=== PATIENT | female | born 1955 | race Caucasian/White ===

== ENCOUNTER 2020-12-16 22:54 | Emergency (ER) | payer MEDICARE, SELFPAY ==
[2020-12-16 23:01] VITALS: BP 161/88; PULSE 94
[2020-12-16 23:12] VITALS: BP 152/81; PULSE 89; RESP 16; TEMP 37.4; O2SAT 97; BMI 34.2
--- NOTE | 2020-12-16 23:20 | ED.GENADULT ---
HPI - General Adult General Chief complaint: General Medical Stated complaint: low blood sugar Time Seen by Provider: 12/16/20 23:20 Source: patient Mode of arrival: EMS Limitations: no limitations History of Present Illness HPI narrative: Patient took by mistake 30 units of Humalog instead of Lantus at 20:00 check blood sugar was 240 had honey and sandwiches at home, came here with blood sugar of 104 feeling okay otherwise. Patient blood sugar is well controlled otherwise is on tapering dose of prednisone for back pain for last 2 weeks Related Data Allergies Allergy/AdvReac Type Severity Reaction Status Date / Time azathioprine [From Imuran] Allergy Hives Verified 12/16/20 23:06 Review of Systems Review of Systems: Constitutional : No Weight loss, No Fever, No Chills ENT/Mouth : No sore throat, No Rhinorrhea Eyes: No Eye Pain, No Swelling Cardiovascular : No Chest Pain, no palpitations Respiratory : No Cough, No Sputum, no shortness of breath Gastrointestinal : no Nausea, No Vomiting, No Diarrhea, No abdominal Pain, no black stools Genitourinary : No Dysuria, No Urinary Frequency Musculoskeletal : No joint pain, No Myalgias, No Joint Swelling Skin : No Skin Lesions, No rash Neuro : No Weakness, No Numbness, No Dizziness, No Headache Psych : No Anxiety/Panic, No Depression Heme/Lymph: No Bruising, No Lymphadenopathy Endocrine : No Polyuria, No Polydipsia All other systems reviewed and are negative [facility] Past Medical History Medical History Central nervous system lupus Hypercholesteremia Lumbar post-laminectomy syndrome Spinal cord stimulator status Tachycardia Surgical History History of right hip replacement S/P left rotator cuff repair Social History Social History Alcohol intake: never Smoking Status: Never smoker Use of substances other than those prescribed or required for medical reasons: No Advance Directives: No Physical Exam Vital Signs: Vital Signs: Last Vital Signs Temp 99.4 F 12/16/20 23:12 Pulse 89 12/16/20 23:12 Resp 16 12/16/20 23:12 BP 152/81 H 12/16/20 23:12 Pulse Ox 97 12/16/20 23:12 Body Mass Index 34.2 Appearance: Alert. Oriented X3. No acute distress. Eyes: PERRLA, No Nystagmus ENT: Pharynx normal. Oral Mucosa moist Neck: Normal inspection. Neck supple. CVS: Normal heart rate and rhythm. Pulses normal. Respiratory: No respiratory distress. Equal air entry bilateral, no wheezing/rales/rhonchi Abdomen: Soft and nontender. Bowel sounds are present, no mass palpable, no CVA tenderness Skin: Skin warm and dry. Normal skin color. Normal skin turgor. Extremities: No lower extremity edema. No calf tenderness Neuro: Oriented X 3. No motor deficit. No sensory deficit.No cerebellar signs , cranial nerves II-XII intact Medical Decision Making MDM Narrative Medical decision making narrative: Patient with accidental overdose of Humalog blood sugar 118 now feeling much better already been 4 hours since she took the Humalog injection will discharge her home advised to recheck her sugar in 2 hours Lab Data Lab results reviewed: Yes I reviewed the patient's lab results. Labs: Lab Results 12/16/20 12/17/20 Range/Units 23:10 00:16 POC Glucose 104 118 H (60-115) mg/dL Discharge Plan Discharge Clinical Impression: Hypoglycemia due to insulin Patient Disposition: Home, Self-Care Instructions: Hypoglycemia in a Person with Diabetes (ED) Additional Instructions: Check your blood sugar in next 2 hours Have extra meal before going to bed Continue your insulin regular dose from tomorrow Interventions: ED Discharge Assessment Last Done: 12/17/20 00:54
--- NOTE | 2020-12-16 23:23 | PC.NURSE ---
blood glucose 104
[2020-12-16 23:26] LABS: Glucose, Whole Blood 104 mg/dL (60-115)
[2020-12-17 00:21] LABS: Glucose, Whole Blood 118 mg/dL (60-115)
== END 2020-12-17 01:15 | disposition home or self-care (01) ==
PROVIDERS: Emergency Provider Internal Medicine; PCP Family Medicine
DX: T38.3X1A Poisoning by insulin and oral hypoglycemic [antidiabetic] drugs, accidental (unintentional), initial encounter (principal); E11.649 Type 2 diabetes mellitus with hypoglycemia without coma; Y92.019 Unspecified place in single-family (private) house as the place of occurrence of the external cause; M32.9 Systemic lupus erythematosus, unspecified; E78.00 Pure hypercholesterolemia, unspecified
CPT/HCPCS: 82947; 99284

== ENCOUNTER 2022-11-25 14:24 | Emergency (ER) | payer MEDICARE, SELFPAY ==
[2022-11-25 14:52] VITALS: BP 129/62; BP 142/63; PULSE 61; PULSE 67; TEMP 36.5; O2SAT 94; O2SAT 96; BMI 37.0
[2022-11-25] MEDS: vancomycin HCL 125 MG CAPSULE PO (15:35)
[2022-11-25] MEDS: Amoxicillin/Potassium Clav 875 MG TABLET PO (15:35)
[2022-11-25] MEDS: Lidocaine HCl 1 % MPF 5 ML VIAL SUBCUT ×2 (15:41)
--- NOTE | 2022-11-25 17:18 | ED.WOUNDLAC ---
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 so her doctors have recommended that she take vancomycin along with any antibiotic prescription Related Data Previous Rx's Medication Instructions Recorded amoxicillin 875 mg-potassium 1 tab PO BID 4 days #8 tabs 11/25/22 clavulanate 125 mg tablet vancomycin 125 mg capsule 125 mg PO QID 7 days #28 caps 11/25/22 Allergies Allergy/AdvReac Type Severity Reaction Status Date / Time azathioprine [From Imuran] Allergy Hives Verified 12/16/20 23:06 [facility] Past Medical History Source: nursing notes reviewed Medical History Central nervous system lupus Hypercholesteremia Lumbar post-laminectomy syndrome Spinal cord stimulator status Tachycardia Surgical History History of right hip replacement S/P left rotator cuff repair Social History Social History Alcohol intake: never Advance Directives: Yes Advance Directives Information Provided: No Advance Directives on File: No Physical Exam Vital Signs: Vital Signs: Last Vital Signs Temp 97.7 F 11/25/22 14:52 Pulse 61 11/25/22 14:52 BP 142/63 H 11/25/22 14:52 Pulse Ox 96 11/25/22 14:52 O2 Del Method Nasal Cannula 11/25/22 14:52 Oxygen Flow Rate 4 11/25/22 14:52 BMI result Body Mass Index 37.0 General appearance is no acute distress comfortable cheerful cooperative Facial exam the left eyelid has a laceration just above the eye where the eyelid meets the eyebrow which is through to subcutaneous tissues and is approximately 3.5 cm long She is easily able to open and close her eyelid and can feel when I touch her eyelid Pupils equal round reactive to light extraocular motions are full and intact Neck is supple Respiratory no distress Extremities full range of motion x4 Course Course Course Narrative: Well-appearing patient with laceration above left eyelid, 3.5 cm Suture repair note anesthesia is 4 cc of 1% lidocaine Laceration is copiously irrigated with normal saline Closure is 6 0 nylon sutures, wound is loosely approximated Re-evaluation after suturing patient is able to open and close the eye easily, she has no eye pain, and she is able to keep her eyes closed against resistance Well-appearing patient is discharged with prophylactic antibiotic and prophylactic vanco to prevent C difficile Medications Administered Discontinued Medications Generic Name Dose Route Start Last Admin Trade Name Freq PRN Reason Stop Dose Admin Amoxicillin/Clavulanate Potassium 875 mg 11/25/22 15:10 11/25/22 15:35 Amoxicillin/Potassium Clav 875 Mg Tablet PO 11/25/22 15:11 875 mg ONCE ONE Administration Lidocaine HCl 5 ml 11/25/22 15:04 11/25/22 15:41 Lidocaine Hcl 1 % Mpf 5 Ml Vial SUBCUT 11/25/22 15:05 5 ml ONCE ONE Administration Lidocaine HCl 5 ml 11/25/22 15:05 11/25/22 15:41 Lidocaine Hcl 1 % Mpf 5 Ml Vial SUBCUT 11/25/22 15:06 5 ml ONCE ONE Administration Vancomycin HCl 125 mg 11/25/22 15:14 11/25/22 15:35 Vancomycin Hcl 125 Mg Capsule PO 11/25/22 15:15 125 mg ONCE ONE Administration Discharge Plan Discharge Clinical Impression: Laceration, Cat scratch Patient Disposition: Home, Self-Care Additional Instructions: Stitches need to come out in 5-7 days Return immediately for redness swelling discharge from wound fever, increased pain any sign of infection or any worse condition or any concerns We are using Augmentin anti biotic to help prevent infection for 4 days As you of had C difficile many times and have been advised to use vancomycin to prevent C difficile I wrote for 7 days of vancomycin, but I am not sure how long you need to take it so call your doctor for best advice on how long to take vancomycin with 4 days of Augmentin antibiotic Prescriptions: New amoxicillin-pot clavulanate 875-125 mg tablet 1 tab PO BID 4 Days Qty: 8 0RF vancomycin 125 mg capsule 125 mg PO QID 7 Days Qty: 28 0RF
[2022-11-25 17:52] VITALS: BP 139/66; PULSE 57; RESP 18; TEMP 36.5; O2SAT 96
== END 2022-11-25 19:04 | disposition home or self-care (01) ==
PROVIDERS: Emergency Provider Emergency Medicine Emergency Medical Services; PCP Family Medicine
DX: S01.112A Laceration without foreign body of left eyelid and periocular area, initial encounter (principal); W55.03XA Scratched by cat, initial encounter; Y93.9 Activity, unspecified; Y92.9 Unspecified place or not applicable; Y99.9 Unspecified external cause status; Z79.899 Other long term (current) drug therapy
CPT/HCPCS: 12013; 99284

== ENCOUNTER 2025-02-16 16:33 | Emergency (ER) | payer MEDICARE, SELFPAY ==
--- OUTSIDE RECORDS SUMMARY | 2025-02-15 23:59 | XMS_ITS | Continuity of Care Document ---
Author Organization [facility] Address [address] [place] [id number]- Care Team Providers Care Activity Director Name Role Phone Rajesh Luu MD [id number] Date[facility]s): 10/18/24 - 02/15/[address] [address]- Attending Physician: Carla Bowie MD Admitting Physician: Carla Bowie MD Referring Physician: Rajesh Luu MD Encounter Type: Pre-OutPatient One Time Allergies, Adverse Reactions, Alerts Substance Criticality Severity Reaction Reaction Severity Status sulfa drugs Active azaTHIOprine Active Travoprost Active Immunizations Given and Recorded Vaccine Date Status Refusal Reason SARS-CoV-2(COVID-19)mRNA-LNP vac([id number]) 1 06/28/24 Given influenza virus vaccine, inactivated 06/28/24 Give n influenza virus vaccine, inactivated 2 05/06/23 Gi shady influenza virus vaccine, inactivated 05/28/22 Dakotah rded influenza virus vaccine, inactivated 05/30/21 Give n influenza virus vaccine, inactivated 05/04/19 Give n RSV vaccine preF3, recombinant 08/30/23 Recorded SARS-CoV-2(COVID-19)mRNA-LNP vac([id number]) 05/13/23 Recorded pneumococcal 23-valent vaccine 3 09/14/22 Given [id number] bivalent booster vax 08/06/22 Recorded zoster vaccine, inactivated 06/08/22 Recorded zoster vaccine, inactivated 02/06/22 Recorded SARS-CoV-2 (COVID-19) mRNA-1273 vaccine 12/01/21 R ecorded SARS-CoV-2 (COVID-19) mRNA-1273 vaccine 07/15/21 R ecorded SARS-CoV-2 (COVID-19) mRNA-1273 vaccine 11/01/20 G iven SARS-CoV-2 (COVID-19) mRNA-1273 vaccine 10/04/20 G iven Influenza Virus Vaccine (oldterm) 2017 Recorde d pneumococcal 13-valent vaccine 2014 Recorded diphtheria/tetanus/pertussis, acel(DTaP) 2011 Recorded 1Result Comment: [facility] [id number] 2Result Comment: [id number] 3Result Comment: [id number] Medications albuterol 0.083% inhalation solution 3 mL = 2.5 mg, Neb, Every 6 hours, PRN as needed for wheezing, j45.909, # 360 mL, 11 Refills, Maintenance, 06/28/24 1:57:00 PM EST, Solution, [facility]/pharmacy #[id number], Partial fill upon patient request if the prescription is for a schedule II opioid drug., 153, cm, 06/28/24 13:11:00 EST, Height, 96, kg, 03/17/24 14:18:00 EDT, Dry Weight Start Date: 06/28/24 Status: Ordered Quantity: 360.0 Unit: mL Repeat number: 12 Anusol-HC 2.5% topical cream 1 application, Topically, 2 times a day, # 28 Gm, 11 Refills, Acute 06/27/25 12:24:00 PM EST, 06/27/24 12:24:00 PM EST, Cream, [facility]/pharmacy #[id number], Partial fill upon patient request if the prescription is for a schedule II opioid drug., 1 application Topically 2 times a day, 153, cm, 06/17/24 13:16:00 EST, Height, 96, kg, 03/17/24 14:18:00 EDT, Dry Weight Start Date: 06/27/24 Stop Date: 06/27/25 Status: Ordered Quantity: 28.0 Unit: g Repeat number: 12 apixaban 5 mg oral tablet 1 tablet = 5 mg, By Mouth, 2 times a day, # 120 tablet, 0 Refills, Maintenance, 02/15/25 7:15:00 AM EDT, Tablet, [facility]/pharmacy #[id number], Partial fill upon patient request if the prescription is for a schedule II opioid drug., 152, cm, 02/13/25 12:56:00 EDT, Height, 95.1, kg, 01/25/25 17:09:00 EDT, Dry Weight Start Date: 02/15/25 Stop Date: 04/16/25 Status: Ordered Quantity: 120.0 Unit: tablet Repeat number: 1 BD PEN NDL [id number] 31G X 8 MM Miscellaneous BD PEN NDL [id number] 31G X 8 MM Miscellaneous, See Instructions, # 200 Unknown, 7 Refills, Maintenance, USE DIRECTED 4 TIMES A DAY, 10/20/24 5:05:00 PM EDT, 153, cm, 10/10/24 13:16:00 EST, Height, 95, kg, 09/02/24 13:14:00 EST, Dry Weight Start Date: 10/20/24 Status: Ordered Quantity: 200.0 Unit: Unknown Repeat number: 1 Bed rail Bed rail, See Instructions, # 1 each, Refills 0, Tot. Refills 0, Maintenance, Use to assist with bed mobility, Dx: J96.11, 12/14/24 10:30:00 AM EDT, Supply Start Date: 12/14/24 Status: Ordered Quantity: 1.0 Unit: each Repeat number: 1 benzonatate 100 mg oral capsule 1 capsule, By Mouth, 3 times a day, # 21 capsule, 0 Refills, Maintenance, 08/06/23 2:35:00 PM EST, [id number], 153, cm, 08/04/23 13:35:00 EST, Height, 95, kg, 08/04/23 13:35:00 EST, Dry Weight Start Date: 08/06/23 Stop Date: 08/13/23 Status: Ordered Quantity: 21.0 Unit: capsule Repeat number: 1 bifidobacterium-lactobacillus oral tablet, chewable 1 tablet, Chew, Daily, # 15 tablet, 0 Refills, Maintenance, 02/26/24 1:03:00 PM EDT, Chew Tablet, [id number], Partial fill upon patient request if the prescription is for a schedule II opioid drug., 1 tablet Chew Daily,x15 days, 153, cm, 02/25/24 20:19:00 EDT, Height, 93.5, kg, 02/25/24 20:19:00 EDT, Dry Weight Start Date: 02/26/24 Stop Date: 03/12/24 Status: Ordered Quantity: 15.0 Unit: tablet Repeat number: 1 Breztri Aerosphere inhalation aerosol 2 puffs, Inhalation, 2 times a day, rinse mouth and throat after use, # 10.7 Gm, 11 Refills, Maintenance, 12/11/24 4:24:00 PM EDT, Aerosol, [id number], Partial fill upon patient request if the prescription is for a schedule II opioid drug., 2 puffs Inhalation 2 times a day,Instr:rinse mouth and throat after use, 153, cm, 12/08/24 12:13:00 EDT, Height, 92.5, kg, 11/23/24 14:26:00 EDT, Dry Weight Start Date: 12/11/24 Status: Ordered Quantity: 10.7 Unit: g Repeat number: 12 clonazePAM 0.5 mg oral tablet 1 tablet = 0.5 mg, By Mouth, Daily, PRN severe anxiety, # 6 tablet, 2 Refills, Maintenance, 09/14/24 4:31:00 PM EST, [id number], Partial fill upon patient request if the prescription is for a schedule II opioid drug., 153, cm, 09/14/24 16:05:00 EST, Height, 95, kg, 09/02/24 13:14:00 EST, Dry Weight Start Date: 09/14/24 Status: Ordered Quantity: 6.0 Unit: tablet Repeat number: 3 clotrimazole 1% topical cream See Instructions, APPLY TO AFFECTED AREA TWICE A DAY, # 60 Gm, 11 Refills, Maintenance, 06/08/24 6:14:00 PM EDT, [id number], 60, APPLY TO AFFECTED AREA TWICE A DAY, 153, cm, 05/30/24 16:07:00EDT, Height, 96, kg, 03/17/24 14:18:00 EDT, Dry Weight Start Date: 06/08/24 Stop Date: 06/08/25 Status: Ordered Quantity: 60.0 Unit: g Repeat number: 12 colestipol 1 gm oral tablet 2 tablet, By Mouth, 2 times a day, # 360 tablet, 5 Refills, Maintenance, 11/20/24 1:50:00 PM EDT, [id number], 153, cm, 11/20/24 5:15:00 EDT, Height, 93.5, kg, 11/20/24 5:15:00 EDT, Dry Weight Start Date: 11/20/24 Status: Ordered Quantity: 360.0 Unit: tablet Repeat number: 1 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 Refills 3, Maintenance, use to continuously monitor Blood Glucose levels. Change sensor every 10 days. E11.9 90 day supply, 12/06/24 4:10:00 PM EDT, Supply, 153, cm, 11/26/24 17:59:00 EDT, Height, 92.5, kg, 11/23/24 14:26:00 EDT, Dry Weight Start Date: 12/06/24 Status: Ordered Quantity: 9.0 Unit: each Repeat number: 4 diazepam 5 mg oral tablet 5 mg, 1, tablet, By Mouth, 2 times a day, PRN, # 180 tablet, Refills 1, Tot. Refills 1, Maintenance, Spasm, 01/08/25 3:07:00 PM EDT, Route to Pharmacy Electronically, [facility]/pharmacy #[id number], Partial fill upon patient request if the prescription is for a schedule II opioid drug., 152, cm, 01/03/25 22:47:00 EDT, Height, 95.1, kg, 01/03/25 23:07:00 EDT, Dry Weight Start Date: 01/08/25 Status: Ordered Quantity: 180.0 Unit: tablet Repeat number: 2 dilTIAZem 120 mg/24 hours oral tablet, extended release 1 tablet = 120 mg, By Mouth, Daily, HOLD THE DOSE FOR BP <100/70 and OR Heart rate <60, # 30 tablet, 0 Refills, Maintenance, 01/27/25 3:23:00 PM EDT, ER Tablet, [facility]/pharmacy #[id number], Partial fill upon patient request if the prescription is for a schedule II opioid drug., 152, cm, 01/16/25 10:31:00 EDT, Height, 95.1, kg, 01/03/25 23:07:00 EDT, Dry Weight Start Date: 01/27/25 Stop Date: 02/26/25 Status: Ordered Quantity: 30.0 Unit: tablet Repeat number: 1 estradiol 0.1 mg/g vaginal cream See Instructions, 1 Gm Vaginally three times weekly, # 42.5 Gm, 11 Refills, Maintenance, 05/07/23 5:53:00 AM EDT, Cream, [facility]/pharmacy #[id number], Partial fill upon patient request if the prescription is for a schedule II opioid drug., 153, cm, 05/06/23 14:42:00 EDT, Height, 96.5, kg, 05/01/23 10:23:00 EDT, Dry Weight Start Date: 05/07/23 Status: Ordered Quantity: 42.5 Unit: g Repeat number: 12 fenofibrate 160 mg oral tablet 1 tablet, By Mouth, Daily, # 90 tablet, 1 Refills, Maintenance, 10/19/24 6:22:00 PM EDT, [id number], 153, cm, 10/10/24 13:16:00 EST, Height, 95, kg, 09/02/24 13:14:00 EST, Dry Weight Start Date: 10/19/24 Status: Ordered Quantity: 90.0 Unit: tablet Repeat number: 1 fentaNYL 37.5 mcg/hr transdermal film, extended release 1 patch, Topically, Every 72 hours, # 10 patch, 0 Refills, Maintenance, 01/27/25 6:56:00 AM EDT, [id number], Partial fill upon patient request if the prescription is for a schedule IIopioid drug., 1 patch Topically Every 72 hours, 152, cm, 01/27/25 6:00:00 EDT, Height, 95.1, kg, 01/25/25 17:09:00 EDT, Dry Weight Start Date: 01/27/25 Status: Ordered Quantity: 10.0 Unit: patch Repeat number: 1 fluticasone 50 mcg/inh nasal spray See Instructions, SPRAY 2 SQUIRTS IN THE NOSTRILS TWICE A DAY FOR 7 DAYS, THEN 1 SQUIRT TWICE DAILYUNTIL THE SPRING IS OVER., # 48 mL, 1 Refills, Maintenance, 08/31/24 3:59:00 PM EST, [id number], 90, SPRAY 2 SQUIRTS IN THE NOSTRILS TWICE A DAY FOR 7 DAYS, THEN 1 SQUIRT TWICE DAILY UNTIL THE SPRING IS OVER., 153, cm, 07/15/24 12:09:00 EST, Height, 96, kg, 03/17/24 14:18:00 EDT, Dry Weight Start Date: 08/31/24 Status: Ordered Quantity: 48.0 Unit: mL Repeat number: 1 HYDROmorphone 4 mg oral tablet 1 tablet = 4 mg, By Mouth, Every 8 hours, # 84 tablet, 0 Refills, Maintenance, 02/06/25 5:24:00 PM EDT, [facility], Partial fill upon patient request if the prescription is for a schedule II opioid drug., 152, cm, 02/05/25 10:53:00 EDT, Height, 95.1, kg, 01/25/25 17:09:00 EDT, Dry Weight Start Date: 02/06/25 Stop Date: 03/06/25 Status: Ordered Quantity: 84.0 Unit: tablet Repeat number: 1 hydroxychloroquine 200 mg oral tablet 400 mg, 2, tablet, By Mouth, Daily, # 180 tablet, Refills 0, Maintenance, 11/20/24 7:08:00 PM EDT, Partial fill upon patient request if the prescription is for a schedule II opioid drug. Start Date: 11/20/24 Status: Ordered Quantity: 180.0 Unit: tablet Repeat number: 1 ipratropium nasal 21 mcg/inh spray USE 2 SPRAYS NARES, BOTH 2 TIMES A DAY NEEDED FOR NASAL CONGESTION Start Date: 01/25/25 Status: Ordered Repeat number: 1 iron sulfate By Mouth, Daily, 0 Refills, Maintenance, 10/14/22 2:24:00 PM EST, Partial fill upon patient request if the prescription is for a schedule II opioid drug. Start Date: 10/14/22 Status: Ordered Repeat number: 1 latanoprost 0.005% ophthalmic solution 7 mL, 0 Refill(s), INSTILL 1 DROP IN BOTH EYES AT BEDTIME 90 DAY SUPPLY, 0 Refills, 02/16/24 3:34:00PM EDT, Partial fill upon patient request if the prescription is for a schedule II opioid drug. Start Date: 02/16/24 Status: Ordered Repeat number: 1 lisinopril 10 mg oral tablet 1, tablet, By Mouth, Daily, # 30 tablet, Refills 0, Maintenance, 02/06/25 5:30:00 PM EDT, Route to Pharmacy Electronically, [id number], 152, cm, 02/05/25 10:53:00 EDT, Height, 95.1, kg, 01/25/25 17:09:00 EDT, Dry Weight Start Date: 02/06/25 Status: Ordered Quantity: 30.0 Unit: tablet Repeat number: 1 loratadine 10 mg oral tablet 10 mg, 1, tablet, By Mouth, Daily, # 30 tablet, Refills 11, Tot. Refills 11, Maintenance, 06/28/24 1:57:00 PM EST, Route to Pharmacy Electronically, [facility]/pharmacy #[id number], Partial fill upon patient request if the prescription is for a schedule II opioid drug., 153, cm, 06/28/24 13:11:00 EST, Height, 96, kg, 03/17/24 14:18:00 EDT, Dry Weight Start Date: 06/28/24 Status: Ordered Quantity: 30.0 Unit: tablet Repeat number: 12 Metoprolol Succinate ER 100 mg oral tablet, extended release 100 mg, By Mouth, Daily at bedtime, # 90 tablet, Refills 0, Tot. Refills 0, Maintenance, 01/07/25 1:17:00 PM EDT, Route to Pharmacy Electronically, [facility]/pharmacy #[id number], Partial fill upon patient requestif the prescription is for a schedule II opioid drug., 152, cm, 01/03/25 22:47:00 EDT, Height, 95.1, kg, 01/03/25 23:07:00 EDT, Dry Weight Start Date: 01/07/25 Status: Ordered Quantity: 90.0 Unit: tablet Repeat number: 1 mirtazapine 15 mg oral tablet 1 tablet, By Mouth, Daily at bedtime, # 90 tablet, 1 Refills, Maintenance, 12/15/24 8:15:00 AM EDT, [id number], 153, cm, 12/13/24 16:05:00 EDT, Height, 92.5, kg, 11/23/24 14:26:00 EDT, Dry Weight Start Date: 12/15/24 Status: Ordered Quantity: 90.0 Unit: tablet Repeat number: 1 montelukast 10 mg oral tablet 1, tablet, By Mouth, Daily, # 30 tablet, Refills 11, Tot. Refills 11, Maintenance, 06/28/24 1:57:00PM EST, Route to Pharmacy Electronically, [facility]/pharmacy #[id number], 153, cm, 06/28/24 13:11:00 EST, Height, 96, kg, 03/17/24 14:18:00 EDT, Dry Weight Start Date: 06/28/24 Status: Ordered Quantity: 30.0 Unit: tablet Repeat number: 12 mycophenolate mofetil 500 mg oral tablet 2 tablet = 1,000 mg, By Mouth, 2 times a day, # 120 tablet, 0 Refills, Maintenance, 10/05/19 11:31:00 AM EST, Tablet Start Date: 10/05/19 Status: Ordered Quantity: 120.0 Unit: tablet Repeat number: 1 NovoLOG FlexPen 100 units/mL injectable solution See Instructions, USE DIRECTED SUBCUTANEOUSLY THREE TIMES A DAY BEFORE MEALS, MAX DAILY DOSE 33 UNITS, # 30 mL, 5 Refills, Maintenance, 02/13/25 8:51:00 AM EDT, [facility], 152, cm,02/05/25 10:53:00 EDT, Height, 95.1, kg, 01/25/25 17:09:00 EDT, Dry Weight Start Date: 02/13/25 Status: Ordered Quantity: 30.0 Unit: mL Repeat number: 6 ondansetron 4 mg oral tablet 1 tablet = 4 mg, By Mouth, Every 8 hours, PRN Nausea & Vomiting, # 20 tablet, 5 Refills, Acute 06/30/25 3:00:00 PM EST, 06/30/24 2:51:00 PM EST, [facility]/pharmacy #[id number], Partial fill upon patient request if the prescription is for a schedule II opioid drug., 153, cm, 06/28/24 14:30:00 EST, Height, 96, kg, 03/17/24 14:18:00 EDT, Dry Weight Start Date: 06/30/24 Stop Date: 06/30/25 Status: Ordered Quantity: 20.0 Unit: tablet Repeat number: 6 pantoprazole 40 mg oral delayed release tablet See Instructions, TAKE 1 TABLET BY MOUTH EVERY DAY, # 90 tablet, 3 Refills, Maintenance, 12/21/24 9:26:00 PM EDT, 153, cm, 12/13/24 16:05:00 EDT, Height, 92.5, kg, 11/23/24 14:26:00 EDT, Dry Weight Start Date: 12/21/24 Status: Ordered Quantity: 90.0 Unit: tablet Repeat number: 1 predniSONE 1 mg oral tablet 3 tablet = 3 mg, By Mouth, Daily, along with 10mg tablet for a total of 13 mg daily, 0 Refills, Maintenance, 02/05/25 10:51:00 AM EDT, Partial fill upon patient request if the prescription is for a schedule II opioid drug. Start Date: 02/05/25 Status: Ordered Repeat number: 1 predniSONE 10 mg oral tablet 1 tablet = 10 mg, By Mouth, Daily, along with 3 1mg tablets for a total of 13mg daily, 0 Refills, Maintenance, 02/05/25 10:50:00 AM EDT, Partial fill upon patient request if the prescription is for a schedule II opioid drug. Start Date: 02/05/25 Status: Ordered Repeat number: 1 pregabalin 150 mg oral capsule See Instructions, TAKE 1 CAPSULE BY MOUTH TWICE A DAY, # 60 capsule, 5 Refills, Maintenance, 10/17/24 10:00:00 AM EDT, [facility]/pharm[facility] #[id number], 153, cm, 10/10/24 13:16:00 EST, Height, 95, kg, 09/02/24 13:14:00 EST, Dry Weight Start Date: 10/17/24 Status: Ordered Quantity: 60.0 Unit: capsule Repeat number: 6 Prolia 60 mg/mL subcutaneous solution 1 mL = 60 mg, Subcutaneous Injection, Every 6 months, # 1 mL, 0 Refills, Maintenance, 05/30/24 4:06:00 PM EDT, Solution, Partial fill upon patient request if the prescription is for a schedule II opioid drug. Start Date: 05/30/24 Status: Ordered Quantity: 1.0 Unit: mL Repeat number: 1 solifenacin 10 mg oral tablet 1 tablet, By Mouth, Daily, # 90 tablet, 3 Refills, Maintenance, 10/15/24 6:20:00 AM EDT, [facility]pharm[facility][id number], 153, cm, 10/10/24 13:16:00 EST, Height, 95, kg, 09/02/24 13:14:00 EST, Dry Weight Start Date: 10/15/24 Status: Ordered Quantity: 90.0 Unit: tablet Repeat number: 4 Tezspire Pre-filled Syringe 210 mg/1.91 mL subcutaneous solution See Instructions, 210 mg Subcutaneous Infusion every 4 weeks, # 1 each, 11 Refills, Maintenance, 03/10/24 9:36:00 AM EDT, Partial fill upon patient request if the prescription is for a schedule II opioid drug. Start Date: 03/10/24 Status: Ordered Quantity: 1.0 Unit: each Repeat number: 12 Indications: Unspecified asthma, uncomplicated; Tresiba FlexTouch 100 units/mL subcutaneous solution See Instructions, INJECT 20 UNITS ONCE AT NIGHT, # 30 Unknown, 5 Refills, Maintenance, 08/07/24 9:07:00 AM EST, [facility] #[id number], 153, cm, 07/15/24 12:09:00 EST, Height, 96, kg, 03/17/24 14:18:00 EDT, Dry Weight Start Date: 08/07/24 Status: Ordered Quantity: 30.0 Unit: Unknown Repeat number: 6 triamcinolone 0.1% topical cream 15 Gm, 0 Refill(s), APPLY TOPICALLY TO AFFECTED AREA 2 TIMES A DAY,X14 DAYS, 0 Refills, 02/16/24 3:34:00 PM EDT, Partial fill upon patient request if the prescription is for a schedule II opioid drug. Start Date: 02/16/24 Status: Ordered Repeat number: 1 venlafaxine 75 mg oral capsule, extended release 1 capsule, By Mouth, Daily, # 90 capsule, 1 Refills, Maintenance, 01/22/25 4:32:00 PM EDT, [id number], 152, cm, 01/16/25 10:31:00 EDT, Height, 95.1, kg, 01/03/25 23:07:00 EDT, Dry Weight Start Date: 01/22/25 Status: Ordered Quantity: 90.0 Unit: capsule Repeat number: 1 Ventolin HFA 108 mcg/inh inhalation aerosol with adapter 2 puffs, Inhalation, 4 times a day, PRN for wheezing, # 18 Gm, 11 Refills, Maintenance, 06/28/24 1:57:00 PM EST, Aerosol, [id number], Partial fill upon patient request if the prescription is for a schedule II opioid drug., 153, cm, 06/28/24 13:11:00 EST, Height, 96, kg, 03/17/24 14:18:00 EDT, Dry Weight Start Date: 06/28/24 Status: Ordered Quantity: 18.0 Unit: g Repeat number: 12 Vitamin B12 = 1,000 mcg, By Mouth, Every Wednesday, Wednesday and Wednesday, 0 Refills, Maintenance, 07/10/22 6:41:00 PM EST, Partial fill upon patient request if the prescription is for a schedule II opioid drug. Start Date: 07/10/22 Status: Ordered Repeat number: 1 Problem List Condition Confirmation Course Effective Dates Status H ealth Status Informant AF (atrial fibrillation) 1 Confirmed Active Overactive bladder Confirmed Active Chronic back pain Confirmed Active Chronic hypoxic respiratory failure, on home oxygen therapy 2 Confirmed Active Chronic kidney disease, stage 3a 3 Confirmed Active Collagenous colitis Confirmed Active Depression Confirmed Active Chronic use of opiate for therapeutic purpose Confirmed Active On Cellcept therapy Confirmed Active GERD (gastroesophageal reflux disease) Confirmed Active History of compression fracture of spine 4 Confirmed Active Hyperlipidemia Confirmed Active Hypertension Confirmed Active Clostridium difficile carrier Confirmed Active Insomnia, unspecified Confirmed Active Type 2 diabetes mellitus, with long-term current use of insulin Confirmed Active Kidney stones Confirmed Active Left lumbar radiculitis Confirmed Active Lumbar radiculitis Confirmed Active PEDRO (obstructive sleep apnea) Confirmed Active Failed back surgical syndrome Confirmed Active Major depression, recurrent 5 Confirmed Active Restless legs syndrome (RLS) Confirmed Active Severe obesity (BMI 35.0-39.9) with comorbidity Confirmed Active Asthma, severe persistent 6 Confirmed Active Pain in right shoulder Confirmed Active Systemic lupus erythematosus Confirmed Active Vitreous detachment of right eye Confirmed Active 1Per hospital dc summary 11/28/2024. New onset. 2Per palliative care and pulmonology notes. 3Per chart review meeting GFR criteria 4Per Thoracic Spine CT 12/14/23, confimred in [facility] note 03/22/24 Diffuse osteopenia with stable compression fractures at T10, T11, L1, and L2. New likely mild subacute compression fracture of T8. 5Per [facility] notes. 6Per pulmonology note 06/28/24. Social History Social History Type Response Smoking Status Never (less than 100 in lifetime);Never entered on: 04/18/19 Sex Sex Representation Female (finding) Patient Care team information Care Team Personnel Name: Mario Crespo RN Position: [facility] RN Member Role: Primary Care Nurse Name: Trinidad Burns RN Position: [facility] RN Member Role: Primary Care Nurse Name: Gabrielle Burciaga Position: [facility] Outreach Member Role: Lifetime Consulting Physician Name: Raymundo Lorenzana RN Position: [facility] RN Member Role: Primary Care Nurse Name: Ara Nugent RN Position: [facility] RN Member Role: Primary Care Nurse Name: Vandana Francois RN Position: [facility] Hospital Manager Social Work Member Role: Primary Care Nurse Name: Frances Hercules RN Position: [facility] RN Member Role: Primary Care Nurse Name: Seda Cabezas RN Position: [facility] AMB Nurse Member Role: Primary Care Nurse Name: Jonas Alamo RN Position: [facility] RN Member Role: Primary Care Nurse Name: Rajesh Luu MD Position: [facility] Physician - Primary Care Member Role: PCP Address: [address] [place] [id number] Telecom: Name: Andree Wesley RN Position: [facility] Onco RN Member Role: Primary Care Nurse Name: Nancy Navarro RN Position: [facility] RN Member Role: Primary Care Nurse Name: Aurora Durand RN Position: [facility] RN Member Role: Primary Care Nurse Name: Nicola Lama RN Position: [facility] Onco RN Member Role: Primary Care Nurse Name: Debbi Davenport RN Position: [facility] RN Member Role: Primary Care Nurse Name: Celestina Martinez RN Position: [facility] RN Member Role: Primary Care Nurse Name: Penelope Sepulveda RN Position: [facility] RN Member Role: Primary Care Nurse Name: Ingris Nguyen RN Position: S RN Member Role: Primary Care Nurse Name: Rhys Aquino RN Position: S RN Member Role: Primary Care Nurse Name: Roseline Barrios RN, I Position: [facility] RN Member Role: Primary Care Nurse Care Team Related Persons Name: DAVID HUBER Name: KAROLINE ROQUE Name: YANELIS CLARKE Insurance Providers Guarantor name: TAMEKA HUBER [facility] Plan Information #: 1 Payer: [employer] [facility] PPO Payer Identifier: Member Number: [id number] Group Number: [id number] Subscriber Identifier: [id number] Relationship to Subscriber: self Coverage Type: Medicare PPO Coverage Verification Date: NA Telecom: NA Address: [facility] Information #: 2 Payer: [employer] Payer Identifier: Member Number: [id number] Group Number: Subscriber Identifier: [id number] Relationship to Subscriber: self Coverage Type: MEDICAID Coverage Verification Date: NA Telecom: NA Address:
--- NOTE | ~2025-02-16 | CT_ITS ---
CLINICAL HISTORY: fall CT maxillofacial without contrast Comparison: None provided Findings: No acute displaced facial bone fracture. Bilateral nasal bone lucencies appear old/chronic imaged ethmoid air cells. No displaced mandible fracture. Mild osteoarthritis of the temporomandibular joints without dislocation. Metal and lucencies associated with multiple remaining imaged teeth. Mild borderline proptosis (bilateral). No retrobulbar mass or acute intraconal stranding. Vascular calcifications noted. Imaged mastoid air cells are well aerated. IMPRESSION: No acute facial bone fracture. This document has been electronically signed by: Raymundo Bai MD on 02/16/2025 20:41:37
--- NOTE | ~2025-02-16 | XR_ITS ---
CLINICAL HISTORY: fall 2 view right forearm Comparison: None provided Findings: Multiple calcifications are nonspecific. Differential considerations include phleboliths and dorsal calcific foreign bodies. Additional soft tissue swelling prominence is nonspecific. Degenerative changes include imaged elbow and imaged wrists without dislocation. No acute displaced fracture imaged radius or imaged ulna. IMPRESSION: No acute fracture of the right radius or right ulna. This document has been electronically signed by: Raymundo Bai MD on 02/16/2025 20:08:14
--- NOTE | ~2025-02-16 | CT_ITS ---
CLINICAL HISTORY: Fall with HS CT head without contrast Comparison: None provided Findings: No acute intracranial hemorrhage. No midline shift or hydrocephalus. Mild volume loss is generalized and greater than expected for age. Mild-moderate white matter lesions are nonspecific and likely due to small-vessel ischemic disease. No large arterial territorial infarction by CT. Imaged paranasal sinuses imaged mastoid air cells are well aerated. No acute skull fracture. Dermal scalp calcifications are nonspecific and multifocal. Mild/borderline proptosis. IMPRESSION: 1. No acute intracranial abnormality by CT. This document has been electronically signed by: Raymundo Bai MD on 02/16/2025 20:55:36
--- NOTE | ~2025-02-16 | CT_ITS ---
CLINICAL HISTORY: Fall with HS CT cervical spine without contrast Comparison: None provided Findings: No acute fracture of the cervical spine, accounting for artifacts. Reversal of the cervical lordosis. Mild listhesis of the C4-C5. Mild height losses of the C4 through C6 appear old/chronic. Endplate sclerosis endplate changes noted particularly at C5-C6 and C6-C7. Facet arthropathy and ligament calcifications are multifocal. Moderate right-sided foraminal narrowing at C6-C7. No paraspinal hematoma. Mediastinal lipomatosis partially imaged in the [id number]. Scarring and motion of the imaged lung apices. IMPRESSION: No acute fracture of the cervical spine. This document has been electronically signed by: Raymundo Bai MD on 02/16/2025 20:41:56
--- NOTE | ~2025-02-16 | XR_ITS ---
CLINICAL HISTORY: Fell on R knee 2 view right knee Comparison: None provided Findings: Multiple soft tissue calcifications are nonspecific. Combination with phleboliths and myositis ossific cans are considered including calcifications of the imaged quadriceps. Moderate effusion present with small loose bodies by radiographs. No acute displaced fracture or dislocation of the right knee by two-view x-ray. Periosteal thickening including proximal fibula can be seen with venous stasis and stress phenomenon. Moderate osteoarthritis present with joint space narrowing is most pronounced in the patellofemoral compartment. IMPRESSION: 1. Effusion present with loose bodies by radiographs. 2. No acute fracture by radiographs. This document has been electronically signed by: Raymundo Bai MD on 02/16/2025 20:07:56
--- NOTE | ~2025-02-16 | XR_ITS ---
CLINICAL HISTORY: Fell on R elbow 3 view right elbow Comparison: None provided Findings: Small effusion present by radiographs. Mild-moderate osteoarthritis without dislocation. No acute displaced fracture. Soft tissue irregularity is nonspecific encroaching dorsal defect including superficial to the olecranon. Calcifications are nonspecific and may be due to combination calcific foreign bodies and phleboliths. IMPRESSION: 1. No displaced fracture by initial radiographs. 2. Effusion present and nonspecific. This document has been electronically signed by: Raymundo Bai MD on 02/16/2025 20:09:56
[2025-02-16 16:43] VITALS: BP 144/77; BP 145/59; PULSE 60; PULSE 61; RESP 18; TEMP 36.9; O2SAT 96; BMI 39.3
--- OUTSIDE RECORDS SUMMARY | 2025-02-16 17:16 | XMS_ITS | Data Portability ---
Author Organization [facility] CRYSTAL Villafuerte N_W Naveen Cerda MD Address [address] [facility] [address] [place] [address] Care Team Providers Care Assistant Nurse Manager Name Role Phone CARLOS DAVIS Primary Care Provider [phone] Assessment Encounter Date Assessment Date Assessment LastModified by Organization Details LastModified Time 08/19/2017 08/19/2017 Left shoulder status post rotator cuff repair on July 12, 2017. Not available 08/19/2017 14:10:19 11/11/2017 11/11/2017 Left shoulder status post rotator cuff repair on July 12, 2017. Not available 11/11/2017 14:55:39 01/13/2018 01/13/2018 Left shoulder status post rotator cuff repair on July 12, 2017. [email or web address] Not available 01/13/2018 13:57:10 12/02/2018 12/02/2018 Left shoulder status post rotator cuff repair on July 12, 2017. Right shoulder pain with impingement like symptoms. [email or web address] Not available 12/05/2018 10:22:45 04/18/2019 04/18/2019 Left shoulder status post rotator cuff repair on July 12, 2017. Right shoulder pain with impingement like symptoms. [email or web address] Not available 04/18/2019 10:30:26 Plan of Treatment Reminders Order Date Submit Date Provider Last Modified By Organization Details Last Modified Time Details Appointments None recorded. Lab None recorded. Referral None recorded. Procedures None recorded. Surgeries None recorded. Imaging XR, shoulder 2018 019 [place] In-House Results, For Internal Use Only, Do Not Delete/merge, [id number] 9 11:26:54 Medication Orders None recorded. Patient TargetsNo targets recorded. Patient Instructions Encounter Date Encounter Id Patient Instructions Last Modified By Organization Details Last Modified Time 08/19/2017 [id number] rotator cuff injury: care instructions [email or web address] Not available 08/22/2017 18:56:57 shoulder pain: care instructions wnewton Not available 08/22/2017 18:56:57 shoulder bursitis: care instructions wnewton Not available 08/22/2017 18:56:57 The patient is doing well. She was given a new prescription for physical therapy. She will follow-up in three months or sooner if needed. [email or web address] Not available 08/22/2017 18:56:57 11/11/2017 [id number] rotator cuff injury: care instructions wnewton Not available 11/18/2017 10:15:19 shoulder pain: care instructions wnewton Not available 11/18/2017 10:15:19 shoulder bursitis: care instructions wnewton Not available 11/18/2017 10:15:19 The patient will not use her pillow sling. We will see how she responds to the steroid injection. She will continue physical therapy. She will follow-up in two months or sooner if needed. wnewton Not available 11/18/2017 10:15:12 01/13/2018 [id number] rotator cuff injury: care instructions wnewton Not available 01/19/2018 18:17:13 shoulder pain: care instructions wnewton Not available 01/19/2018 18:17:13 shoulder bursitis: care instructions wnewton Not available 01/19/2018 18:17:13 The patient responded very well to the steroid injection. She will continue her physical therapy exercises on her own. She will follow-up as needed. [email or web address] Not available 01/19/2018 18:17:11 12/02/2018 [id number] rotator cuff injury: care instructions wnewton Not available 12/05/2018 10:24:24 shoulder bursitis: care instructions wnewton Not available 12/05/2018 10:24:24 The patient desired to have a steroid injection to her right shoulder. We will see how she responds. She will continue her physical therapy exercises on her own. She will call for another appointment. wnewton Not available 12/05/2018 10:24:23 04/18/2019 [id number] rotator cuff injury: care instructions wnewton Not available 04/20/2019 18:27:06 shoulder bursitis: care instructions wnewton Not available 04/20/2019 18:27:06 The patient's symptoms were relieved after the previous steroid injection, but they have returned. The patient desired to have another steroid injection to her right shoulder. We will see how she responds. She will continue her physical therapy exercises on her own. She will call for another appointment. [email or web address] Not available 04/20/2019 18:27:05 Reason for Referral None Reported. Results Created Date Observation Date Name Description Value Unit Range Abnormal Flag Note LastModifiedBy Organization Detail LastModifiedTime Result Notes None recorded. 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 Procedures Surgical History Date Name Laterality Status Provider Name and Address Organization Details Recorded Time 04/18/20 19 Corticosteroid Injection completed Heidy Lozada [facility] 04/18/2019 10:28:03 12/03/19 19 Corticosteroid Injection completed Wilson Cerda [address] [facility], [place] [address], [place], [address], [facility] 12/05/2018 10:22:21 11/12/19 18 Corticosteroid Injection completed Wilson Cerda [address] [facility], [facility] [address], [place], [place], [address] [place] [address], [facility] 11/18/2017 10:12:50 05/06/20 17 Corticosteroid Injection completed Wilson Cerda [address] [facility], [place] [address], [place], [address] [place] [address], [facility] 05/07/2017 11:17:47 09/20/19 15 Corticosteroid Injection completed Wilson Cerda [address] [facility], [place] [address], [place], [address] [place] [address], [facility] 09/20/2014 18:59:35 Imaging Results None recorded. Procedure Notes None recorded. Medical Equipment None Reported. Allergies Allergen ID Allergen Name Allergen Category Reaction Reaction Severity Criticality Documentation Date Start Date Code Code System Note Provider Name and Address Organization Details Recorded Time 50627 Imuran medicatio n Not available Not available Not available 09/20/2014 12276 9 RxNorm Wilson Cerda [address] [facility], [place] [address], [place], [place], [address] [place] [address], [facility] 5 15:57:59 15843 Travatan medicatio n Not available Not available Not available 09/20/2014 85340 6 RxNorm Wilson Cerda [address], [address] [place] [address], [facility] 5 15:57:59 Medications Name Sig Start Date Stop Date Status Note LastModified by Organization Details LastModified Time celecoxib 200 mg capsule active Not Available Not Available Not Available cyclobenzap rine 10 mg tablet active Not Available Not Available Not Available amoxicillin 500 mg capsule active Not Available Not Available Not Available latanoprost 0.005 % eye drops active Not Available Not Available Not Available dicloxacill in 500 mg capsule active Not Available Not Available Not Available atorvastati n 40 mg tablet active Not Available Not Available Not Available metformin 500 mg tablet active Not Available Not Available Not Available prednisone 10 mg tablet active Not Available Not Available Not Available oxybutynin chloride ER 15 mg tablet,exte nded release 24 hr TAKE 1 TABLET BY MOUTH EVERY DAY active Not Available Not Available No t Available gabapentin 600 mg tablet active Not Available Not Available Not Available clindamycin HCl 300 mg capsule active Not Available Not Available Not Available albuterol sulfate 2.5 mg/3 mL (0.083 %) solution for nebulizatio n TAKE 3 MLS (2.5 MG TOTAL) BY NEBULIZAT ION EVERY 6 (SIX) HOURS NEEDED FOR WHEEZING. active Not Available Not Available No t Available valacyclovi r 1 gram tablet active Not Available Not Available Not Available tolterodine ER 4 mg capsule,ext ended release 24 hr active Not Available Not Available Not Available hydrocodone 5 mg-acetamin ophen 325 mg tablet 11/11 completed Not Available Not Available Not Available ondansetron HCl 4 mg tablet active Not Available Not Available Not Available sertraline 100 mg tablet TAKE 1 TABLET BY MOUTH TWICE A DAY active Not Available Not Available No t Available Accu-Chek Softclix Lancets active Not Available Not Available Not Available metronidazo le 500 mg tablet active Not Available Not Available Not Available acetaminoph en 300 mg-codeine 30 mg tablet TAKE 1 TABLET BY MOUTH EVERY 6 HOURSTO O SOON UNTIL 03/25 active Not Available Not Available No t Available hydrocodone 10 mg-acetamin ophen 325 mg tablet 11/11 completed Not Available Not Available Not Available omeprazole 40 mg capsule,del ayed release active Not Available Not Available Not Available vancomycin 125 mg capsule active Not Available Not Available Not Available hydrocortis one acetate 25 mg rectal suppository UNWRAP AND INSERT 1 SUPPOSITO RY RECTALLY TWICE A DAYNOT COVERED active Not Available Not Available No t Available mycophenola te mofetil 500 mg tablet active Not Available Not Available Not Available potassium chloride ER 20 mEq tablet,exte nded release(par t/cryst) active Not Available Not Available Not Available methocarbam ol 750 mg tablet TAKE 1 TABLET BY MOUTH THREE TIMES A DAY active Not Available Not Available No t Available prednisone 1 mg tablet TAKE 2 TABLETS (2 MG TOTAL) BY MOUTH DAILY. active Not Available Not Available No t Available hydrocodone 7.5 mg-acetamin ophen 325 mg tablet TAKE 1 TO 2 TABLETS BY MOUTH EVERY 4 TO 6 HOURS NEEDED 11/11 completed Not Available Not Available Not Available cephalexin 500 mg capsule TAKE 1 CAPSULE BY MOUTH TWICE A DAY FOR 7 DAYS active Not Available Not Available No t Available pantoprazol e 40 mg tablet,garry yed release active Not Available Not Available Not Available oseltamivir 75 mg capsule active Not Available Not Available Not Available lansoprazol e 30 mg capsule,del ayed release active Not Available Not Available Not Available gabapentin 300 mg capsule TAKE 1 CAPSULE BY MOUTH EVERY DAY IN THE MORNING active Not Available Not Available No t Available codeine 10 mg-guaifene sin 100 mg/5 mL oral liquid active Not Available Not Available Not Available hydrochloro thiazide 25 mg tablet TAKE 1 TABLET BY MOUTH EVERY DAY active Not Available Not Available No t Available mupirocin 2 % topical ointment active Not Available Not Available Not Available hydroxychlo roquine 200 mg tablet active Not Available Not Available No t Available levofloxaci n 500 mg tablet active Not Available Not Available Not Available estradiol 0.01% (0.1 mg/gram) vaginal cream PLACE 1 G VAGINALLY 3 (THREE) TIMES A WEEK. active Not Available Not Available No t Available ipratropium bromide 42 mcg (0.06 %) nasal spray USE 2 SPRAYS INTO INTO EACH NOSTRIL 3 TIMES A DAY active Not Available Not Available No t Available ondansetron 4 mg disintegrat ing tablet active Not Available Not Available N ot Available cefdinir 300 mg capsule active Not Available Not Available Not Available etodolac 500 mg tablet active Not Available Not Available Not Available lisinopril 2.5 mg tablet active Not Available Not Available Not Available atenolol 50 mg tablet active Not Available Not Available No t Available diazepam 5 mg tablet active Not Available Not Available No t Available Novolog FlexPen U-100 Insulin aspart 100 unit/mL (3 mL) subcutaneou s active Not Available Not Available Not Available Restasis 0.05 % eye drops in a dropperette active Not Available Not Available Not Available clobetasol- emollient 0.05 % topical cream active Not Available Not Available Not Available Spiriva with HandiHaler 18 mcg and inhalation capsules INHALE 1 CAPSULE (18 MCG TOTAL) INTO THE LUNGS ONCE DAILY. active Not Available Not Available No t Available nitrofurant oin monohydrate /macrocryst als 100 mg capsule active Not Available Not Available Not Available Vesicare 10 mg tablet TAKE 1 TABLET BY MOUTH EVERY DAY active Not Available Not Available No t Available fenofibrate 160 mg tablet active Not Available Not Available Not Available ProAir HFA 90 mcg/actuati on aerosol inhaler TAKE 2 PUFFS BY MOUTH EVERY 4 HOURS NEEDED FOR WHEEZE active Not Available Not Available No t Available mesalamine 1.2 gram tablet,garry yed release active Not Available Not Available Not Available Symbicort 160 mcg-4.5 mcg/actuati on HFA aerosol inhaler TAKE 2 PUFFS BY MOUTH TWICE A DAY active Not Available Not Available No t Available Humalog KwikPen (U-100) Insulin 100 unit/mL subcutaneou s active Not Available Not Available Not Available Suprep Bowel Prep Kit 17.5 gram-3.13 gram-1.6 gram oral solution active Not Available Not Available Not Available Dificid 200 mg tablet active Not Available Not Available No t Available Xarelto 10 mg tablet 11/11 completed Not Available Not Available Not Available Accu-Chek Charito Plus test strips active Not Available Not Available Not Available Zyclara 3.75 % topical cream in a pump active Not Available Not Available Not Available Tresiba FlexTouch U-200 insulin 200 unit/mL (3 mL) subcutaneou s pen active Not Available Not Available Not Available Basaglar KwikPen U-100 Insulin 100 unit/mL (3 mL) subcutaneou s active Not Available Not Available Not Available Flucelvax Quad 4308-2815 (PF) 60 mcg (15 mcg x 4)/0.5 mL IM syringe TO BE ADMINISTE RED BY PHARMACIS T FOR IMMUNIZAT ION active Not Available Not Available No t Available Vitals Date Recorded Body height Body mass index (BMI) Body weight Systolic And Diastolic Provider Name and Address Organization Details Last Updated DateTime 08/19/2017 152.4 cm 32.8 kg/m2 75634.52 g 121/62 mm[Hg] Wilson Cerda [address] [address] [place] [address] 08/19/2017 14:33:46 Date Recorded Body height Body mass index (BMI) Body weight Systolic And Diastolic Provider Name and Address Organization Details Last Updated DateTime 11/11/2017 152.4 cm 33.5 kg/m2 74073.73 g 117/62 mm[Hg] Wilson Cerda [address] [address] [place] [address] 11/11/2017 15:07:10 Date Recorded Body height Body mass index (BMI) Body weight Systolic And Diastolic Provider Name and Address Organization Details Last Updated DateTime 12/02/2018 152.4 cm 32.6 kg/m2 80178.93 g 110/62 mm[Hg] Wilson Cerda [address] [facility], [facility] [address], [place], [address] 12/02/2018 12:48:03 Date Recorded Body height Body mass index (BMI) Body weight Systolic And Diastolic Provider Name and Address Organization Details Last Updated DateTime 01/13/2018 152.4 cm 33.5 kg/m2 40407.73 g 121/72 mm[Hg] Lokesh Caro [facility] 01/13/2018 14:08:50 Date Recorded Body height Body mass index (BMI) Body weight Systolic And Diastolic Provider Name and Address Organization Details Last Updated DateTime 04/18/2019 152.4 cm 32.6 kg/m2 15619.93 g 132/76 mm[Hg] Wilson Cerda [address] [address] [place] [address] 04/18/2019 10:38:27 Social History Question Answer Notes LastModified by Hapara Details LastModified Time Tobacco Smoking Status Never Smoker Not Available [facility] 06/11/2020 03:23:37 Which Of Your Hands Is Dominant? Right [id number] Information not available 06/11/2020 Illicit Drug Usage/tattoos No Information not available 09/20/2014 Marital Status Informatio n not available 09/20/2014 Sex: Unknown Functional Status Question Answer Note LastModified by Hapara Details LastModified Time What is your level of alcohol consumption? Occasional [id number] Information not available 06/11/2020 Mental Status None recorded. Family History Nothing Reported. Medical History Condition Response HIV or AIDS N Coronary Artery Disease N Gout N Parkinson's Disease N Hernia N Migraines N Thyroid Problems N Lung Disease N Hypothyroidism N Depression Y Blood Clots N Pacemaker N Anemia Y Sciatica Y Heart Attack ([place]) N Ulcers N Osteopenia Y Anxiety Disorder Y Diabetes Y Use of blood thinners N Bleeding Disorder N Arthritis Y Seizures/Epilepsy N Tuberculosis N Cancer Y Urinary Tract Infection Y Stroke N Asthma N Leg or Foot Ulcers N Lupus Y Peripheral Vascular Disease N Hypercholesterolemia Y Sleep Apnea N Bronchitis/Pneumonia Y GERD/Reflux Y Hepatitis N Liver Disease N Heart Disease N Rheumatoid Arthritis N Pulmonary Embolism N Atrial fibrillation N Hypertension Y Osteoporosis N Kidney Disease N Gynecological HistoryNo gynecological history recorded. Obstetrics History GPAL:G 0 P 0 0 0 0 Past Encounters Encounter ID Performer Location Encounter Start Date Encounter Closed Date Diagnosis/Indication Diagnosis SNOMED-CT Code Diagnosis ICD10 Code Diagnosis Note [id number] Wilson BURNETT_Joni Cerda MD [address] [place] [address] 09/20/2014 15:22:03 09/20/2014 16:54:21 Pain of shoulder region 56551745 [id number] Wilson BURNETT_Joni Cerda MD [address] [place] [address] 1 05/06/2017 14:40:57 05/06/2017 15:42:58 Pain of shoulder region 74573811 M25.512 Bursitis of shoulder 239 182282 M75.52 [id number] Wilson Cerda MD [address] [place] [address] 06/03/2017 15:08:35 06/03/2017 15:46:06 Pain of shoulder region 07361473 M25.512 Bursitis of shoulder 239 967808 M75.52 [id number] Wilson Cerda MD [address] [place] [address] 1 06/18/2017 10:06:08 06/18/2017 10:57:38 Pain of shoulder region 23271039 M25.512 Bursitis of shoulder 239 173892 M75.52 Full thick ness rotator cuff tear 960151843 M75.122 Traumatic arthropathy of shoulder 705987608 M12.512 Joint derangement 899701 007 M24.812 [id number] Wilson BURNETT_Joni Cerda MD [address] [place] [address] 1 07/09/2017 11:56:49 07/09/2017 12:52:16 Pain of shoulder region 00054887 M25.512 Bursitis of shoulder 239 980022 M75.52 Full thick ness rotator cuff tear 031645317 M75.122 Traumatic arthropathy of shoulder 725025585 M12.512 Joint derangement 287359 007 M24.812 [id number] Wilson BURNETT_W Naveen Cerda MD [address] [place] [address] 1 07/15/2017 14:17:20 07/15/2017 15:11:59 Pain of shoulder region 44990970 M25.512 Bursitis of shoulder 239 729013 M75.52 Full thick ness rotator cuff tear 025555751 M75.122 Traumatic arthropathy of shoulder 851638445 M12.512 Joint derangement 269304 007 M24.812 [id number] Wilson BURNETT_W Naveen Cerda MD [address] [place] [address] 1 07/21/2017 20:35:55 07/21/2017 20:42:45 [id number] Wilson BURNETT_Joni Cerda MD [address] [place] [address] 1 08/19/2017 14:09:48 08/19/2017 15:08:42 Pain of shoulder region 26850877 M25.512 Bursitis of shoulder 239 593992 M75.52 Full thick ness rotator cuff tear 049858936 M75.122 Traumatic arthropathy of shoulder 904963851 M12.512 Joint derangement 220578 007 M24.812 [id number] Wilson BURNETT_Joni Cerda MD [address] [place] [address] 1 11/11/2017 14:55:11 11/11/2017 15:49:05 Pain of shoulder region 11266529 M25.512 Bursitis of shoulder 239 208698 M75.52 Full thick ness rotator cuff tear 140087301 M75.122 Traumatic arthropathy of shoulder 495633585 M12.512 Joint derangement 419255 007 M24.812 [id number] Wilson BURNETT_Joni Cerda MD [address] [place] [address] 01/13/2018 13:55:45 01/13/2018 14:51:03 Pain of shoulder region 09130789 M25.512 Bursitis of shoulder 239 615433 M75.52 Full thick ness rotator cuff tear 096798267 M75.122 Traumatic arthropathy of shoulder 805725592 M12.512 Joint derangement 903961 007 M24.812 [id number] Wilson BURNETT_Joni Cerda MD [address] [address] 12/02/2018 12:06:15 12/02/2018 13:17:29 Pain of shoulder region 06282774 M25.511 Bursitis of shoulder 239 722986 M75.52 M75.51 Full thick ness rotator cuff tear 386804155 M75.122 Traumatic arthropathy of shoulder 715179533 M12.512 Joint derangement 603066 007 M24.812 [id number] Wilson BURNETT_Joni Cerda MD [address] [facility] [address] [place] [address] 04/18/2019 10:11:54 04/18/2019 10:56:15 Pain of shoulder region 75510684 M25.511 Bursitis of shoulder 239 283089 M75.52 M75.51 Full thick ness rotator cuff tear 126368627 M75.122 Traumatic arthropathy of shoulder 215010835 M12.512 Joint derangement 749470 007 M24.812 Health Concerns Section Related Observation LastModified by Organization Detai ls LastModified Time None Recorded Concern Status LastModified by Organization Details LastModified Time None Recorded Advance Directives Directive None Recorded Payers Insurance Date Sequence Insurance Name Policy Number Policy Zambrano Covered Member ID Zambrano Member ID Guarantor Name 04/17/2019 1 [facility] ([facility] [id number] 1 Jaswinder Rodriguez [id number] Allen Rodriguez 11/11/2017 1 [facility] ([facility]) [id number] Jaswinder Rodriguez [id number] Allenlisa Rodriguez Notes Date Note Type Note Provider Name and Address Organization Details Recorded Time 08/19/2017 text/html Mrs. Rodriguez is a 62 year-old, right hand dominant lady from [place], [place] who returns today for her post-operative evaluation for a left shoulder arthroscopy with rotator cuff repair, decompression, debridement, and John procedure performed on 07/12/2017. Her left shoulder is doing well since surgery. She experiences aching and stabbing pain in the shoulder. She is performing physical therapy exercises. The pain is located in the general area of the joint, and travels down to the elbow. She is also having pain in the general area of the left biceps tendon. It is worse with activity and remains at rest. The pain wakes her up at night. The severity of her left shoulder pain is a 5/10. She takes Causey 7.5 mg once or twice daily and Tylenol #3 once daily for pain. Her accompanies her today. She presents today with a pillow sling on the operative arm. She denies any fever or chills. Wilson Naveen Cerda [address] [facility], [address], [place], [address], [facility] 08/22/2017 18:57:03 11/11/2017 text/html Mrs. Rodriguez is a 62 year-old, right hand dominant lady from [place], [place] who returns today for her further evaluation and treatment for the left shoulder. She is status post left shoulder arthroscopy with rotator cuff repair, decompression, debridement, and John procedure performed on 07/12/2017. She performs physical therapy twice weekly. Since her last visit, the left shoulder pain has slightly worsened. She experiences aching and stabbing pain in the shoulder. She reports painful popping and catching in the left shoulder. The pain is located in the general area of the joint, and travels down to the elbow. It is worse with activity and remains at rest. The pain wakes her up at night. The severity of her left shoulder pain is a 6/10. She Tylenol #3 twice daily for pain. She has also been on oral steroids for multiple joint pain. She presents today with a pillow sling on the operative arm. She denies any fever or chills. Wilson Hodge Prashant [address] [facility], [address], [place], [address], [facility] 11/18/2017 10:15:33 01/13/2018 text/html Mrs. Rodriguez is a 62 year-old, right hand dominant lady from [place], [place] who returns today for further evaluation and treatment of a left shoulder arthroscopy with rotator cuff repair, decompression, debridement, and John procedure performed on 07/12/2017. At her last visit, I injected the left shoulder with a steroid injection. Since her last visit, she states the injection improved her shoulder symptoms. She has finished her physical therapy. She experiences aching and stabbing pain in the general area of the left biceps tendon. It is worse with activity and remains at rest. The pain wakes her up at night. The severity of her left upper arm pain is a 2/10 at it's worst. She takes Tylenol #3 twice daily for pain. She denies any fever or chills. JoniPeri Naveen Cerda [address] [facility], [facility] [address], [place], [phone], [facility] 01/19/2018 18:17:18 12/02/2018 text/html Mrs. Rodriguez is a 63 year-old, right hand dominant lady from [place], [place] with a history of anemia, arthritis, diabetes, lupus, osteopenia and UTI who returns today for further evaluation and treatment of right shoulder pain. The shoulder symptoms reoccurred 4-6 months ago without acute injury. The pain is aching and sharp in nature. She has increased pain with reaching overhead, behind the back or across the body and lifting, pulling, pushing and applying pressure on the anterior aspect of the joint. The pain is located in the general area of the joint and it travels to her right elbow. It is worse with activity and remains at rest. The pain wakes her up at night. The severity of her pain is a 8/10 at it is worst. She takes Tylenol with codeine. She takes gabapentin 600 mg. She takes methocarbamol for spasms on her back. She takes prednisone for lupus. She denies any fever or chills. JoniPeri Naveen Cerda [address] [facility], [facility] [address], [place], [phone], [facility] 12/05/2018 10:25:06 04/18/2019 text/html Mrs. Rodriguez is a 63 year-old, right hand dominant lady from [place], [place] with a history of anemia, arthritis, diabetes, lupus, osteopenia and UTI who returns today for further evaluation and treatment of right shoulder pain with impingement like symptoms. She is left shoulder status post rotator cuff repair on July 12, 2017. At her last visit, I injected the right shoulder with a steroid injection. She states the injection helped for three weeks. Since her last visit, the symptoms have reoccurred. The pain is aching and sharp in nature. The pain increases when reaching across, reaching behind her back, pulling or pushing and lifting. She notes throbbing. The pain is located in the general area of the joint and travels down to her right bicep. It is worse with activity and remains at rest. The pain wakes her up at night. The severity of her pain is a 9/10 at its worse. She takes Tylenol number three as needed and celebrex once a day. She takes gabapentin 600 mg. She takes methocarbamol for spasms on her back. She takes prednisone for lupus. She denies any fever or chills. Wilson Cerda [address] [facility], [address], [place], [address], [place] [facility] 04/20/2019 18:27:11 OBGyn Episode No OBEpisode recorded.
--- OUTSIDE RECORDS SUMMARY | 2025-02-16 17:16 | XMS_ITS | Patient Health Record ---
[facility] [place] Address [address] [place] [address] Care Team Providers Care Maple Syrup Maker Name Role Phone Macey Maria Unavailable [phone] Reason For Referral No Information Encounters Encounter Location Date Provider Diagnosis [facility] [address] [place] [address] 01/02/2025 Macey Maria Plan Of Treatment No Information Insurance Providers Payer Name Payer Address Payer Phone Subscriber Number Group Number Insured Name Patient Relationship to Insured Coverage Start Date Coverage End Date [facility] Preferred [address] [place] [address] Allen Rodriguez Self - patient is the insured
--- OUTSIDE RECORDS SUMMARY | 2025-02-16 17:16 | XMS_ITS | Clinical Summary ---
Author Organization [facility], Address [address] [place] [address] [place] [phone] Phone Care Team Providers Care Senior Electrical Estimator Name Role Phone Rajesh Luu MD Primary Care Provider [phone] Allergies Active Allergy Reactions Criticality Noted Date Comments Azathioprine Other (see comments) 06/08/2019 Sulfa Antibiotics 10/16/2024 Travoprost Other (see comments) 10/16/2024 Medications Hydrocortisone, Perianal, (Anusol-HC) 2.5 % cream Apply 1 Application topically in the morning and 1 Application in the evening. Active benzonatate (TESSALON) 100 MG capsule Take 100 mg by mouth in the morning and 100 mg at noon and 100 mg in the evening. Do not crush or chew.. Active BIFIDOBACTERIUM LACTIS PO Take 1 tablet by mouth 1 (one) time each day Active Fluticasone Furoate-Vilante rol (Breo Ellipta) 200-25 MCG/ACT aerosol powder Inhale 1 puff 1 (one) time each day Active celecoxib (CeleBREX) 200 MG capsule Take 200 mg by mouth 1 (one) time each day Active estradiol (ESTRACE) 0.1 MG/GM vaginal cream Insert into the vagina Active fenofibrate (TRIGLIDE) 160 MG tablet Take 160 mg by mouth 1 (one) time each day Active fentaNYL 37.5 MCG/HR patch [address] 1 patch on the skin every 3rd (third) day Active fluticasone (FLONASE) 50 MCG/ACT nasal spray Administer 1 spray into each nostril 1 (one) time each day Active hydroCHLOROthia zide 25 MG tablet Take 25 mg by mouth 1 (one) time each day Active Umeclidinium [place] (Incruse Ellipta) 62.5 MCG/ACT aerosol powder Inhale 1 puff 1 (one) time each day Active IRON, FERROUS SULFATE, PO Take by mouth Acti ve latanoprost (XALATAN) 0.005 % ophthalmic solution Active lisinopril 2.5 MG tablet Take 2.5 mg by mouth 1 (one) time each day Active loratadine (CLARITIN) 10 MG tablet Take 10 mg by mouth 1 (one) time each day Active metoprolol succinate XL (TOPROL XL) 50 MG 24 hr tablet Take 50 mg by mouth 1 (one) time each day Do not crush or chew. Active mirtazapine (REMERON) 15 MG tablet Take 15 mg by mouth every night Active montelukast (SINGULAIR) 10 MG tablet Take 10 mg by mouth every night Active mycophenolate (CELLCEPT) 500 MG tablet Take 1,000 mg by mouth in the morning and 1,000 mg in the evening. Active Insulin Aspart (NOVOLOG FLEXPEN SC) Inject under the skin Active pantoprazole (PROTONIX) 40 MG EC tablet Take 40 mg by mouth 1 (one) time each day Do not crush, chew, or split. Active predniSONE 5 MG tablet Active pregabalin (LYRICA) 150 MG capsule Active Denosumab (Prolia) 60 MG/ML solution prefilled syringe Inject 1 mL under the skin every 6 (six) months Active solifenacin (VESICARE) 10 MG tablet Take 10 mg by mouth 1 (one) time each day Swallow tablet whole; do not crush, chew, or split. Active Tezepelumab-ekk o (Tezspire) 210 MG/1.91ML solution auto-injector Inject 1.91 mL under the skin every 28 (twenty-eight) days Active Insulin Degludec (TRESIBA SC) Inject under the skin Active venlafaxine XR (EFFEXOR-XR) 75 MG 24 hr capsule Take 75 mg by mouth 1 (one) time each day Do not crush or chew. Active cyanocobalamin (VITAMIN B-12) 1000 MCG tablet Take 1,000 mcg by mouth 1 (one) time each day Active Active Problems Problem Noted Date Diagnosed Date Renal disorder due to type 2 diabetes mellitus 0 10/17/2024 Presence of systemic lupus erythematosus (SLE) i nhibitor 10/17/2024 Stage 3b chronic kidney disease 10/16/2024 Type 2 diabetes mellitus Overview (10/16/2024): with long-term curent use of insulin Systemic lupus erythematosus with pericarditis Overactive bladder Neutropenia Nephrolithiasis Hypertension Hyperlipidemia Immunizations Immunization Administration Dates Next Due Influenza (IM) Preservative Free 05/04/2019 Influenza, Quadrivalent, Pre servative Free 04/18/2020 Moderna SARS-COV-2 12/01/2021,,11/01/2020,10/04 Pneumococcal Polysaccharide 09/14/2022 Shingrix 06/08/2022,02/06/2022 Family History Medical History Relation Comments Aneurysm Brother thoracic aortic without rupture Diabetes type II Father Gout Father Heart attack Father Other Father Alcoholism Hyperlipidemia Mother Hypertension Mother Peripheral vascular disease Mother Raynaud syndrome Mother Stroke Mother Hepatitis Sister Lupus Sister Cardiomyopathy Son Rheum arthritis Son Relation Status Comments Brother Father Mother Sister Son Social History Tobacco Use Types Packs/Day Years Used Date Smoking Tobacco: Never Smokeless Tobacco: Never Comments Unknown Sex and Gender Information Value Date Recorded Sex Assigned at Not on file Legal Sex Female 3:01 PM EST Gender Identity Not on file Sexual Orientation Not on file Plan of Treatment Upcoming Encounters Date Type Department Care Team (Late st Contact Info) Description 04/17/2025 2:00 PM EDT Office Visit [facility] [address] [place] [id number] Erik Garcia MD [address] [place] [address] [place] [id number] Health Maintenance Due Date Last Done Comments Breast Cancer Screening 1955 Colorectal Cancer Screening: Annual FOBT 01/19/2005 Colorectal Cancer Screening: Colonoscopy 01/19/2005 Colorectal Cancer Screening: Sigmoidoscopy 01/19/2005 Pneumococcal Vaccine: 50+ Years (2 of 2 - PCV) 09/14/2023 09/14/2022 Diabetes: Hemoglobin A1C 09/27/2024 Diabetes: Ophthalmology Exam 09/27/2024 Diabetes: Pedal Pulse Checked 09/27/2024 Diabetes: Sensory Foot Exam 09/27/2024 Diabetes: Visual Foot Exam 09/27/2024 Influenza Vaccine (#1) 2025 0, 05/04/2019 Hepatitis B Vaccine Aged Out No longe r eligible based on patient's age to complete this topic Insurance Medicaid [place] [facility] Care Teams Senior Electrical Estimator Relationship Specialty Start Date End Date Rajesh Luu MD [facility] [address] [place] [phone] PCP - General Family Medicine 09/27/24
[2025-02-16 18:08] LABS: MANUAL DIFF FLAG NO
[2025-02-16 18:12] LABS: Hematocrit 30.7 % (37.0-47.0); Hemoglobin 9.8 g/dl (12.0-16.0); Imm Gran Abs Auto 0.09 X10*3/uL (0.00-0.03); Imm Gran Pct Auto 1.7 % (0.0-0.4); Lymphocytes Absolute Auto 0.7 X10*3/uL (1.2-4.9); Mean Corpuscular HGB Conc 31.9 g/dl (31.0-35.0); Mean Corpuscular Hemoglobin 28.7 pg (27.0-33.0); Mean Corpuscular Volume 90.0 fL (80.0-98.0); NRBC Abs Auto 0.000 X10*3/uL (0.0-0.012); NRBC Pct Auto 0.0 /100WBC (0.0-0.2); Platelet Count 160 X10*3/uL (160-400); Red Blood Count 3.41 X10*6/uL (4.20-5.50); White Blood Count 5.3 X10*3/uL (4.8-10.8)
[2025-02-16 18:17] LABS: INTERNATIONAL NORM RATIO 1.1 (0.9-1.1); Prothrombin Time 13.0 SEC (10.9-12.4)
[2025-02-16 18:36] LABS: Alanine Aminotransferase 18 U/L (0-31); Albumin Level 3.0 g/dL (3.5-5.0); Alkaline Phosphatase 39 U/L (39-117); Anion Gap 11 (12-20); Aspartate Amino Transferase 25 U/L (5-31); Blood Urea Nitrogen 27 mg/dL (9-16); Calcium 8.5 mg/dL (8.4-10.2); Carbon Dioxide 29 mmol/L (22-29); Chloride 109 mmol/L (96-108); Creatinine Clr Calc Pharmacy 42.4; Estimated Glomerular Filt Rate 42; Magnesium 1.6 mg/dL (1.6-2.6); Potassium 4.6 mmol/L (3.3-5.1); Sodium 144 mmol/L (135-145); Total Protein 4.9 g/dL (6.5-8.0)
--- NOTE | 2025-02-16 18:36 | ED_ITS ---
HPI - Fall General Chief Complaint: Fall Stated Complaint: mechanical fall, lac to R arm Time Seen by Provider: 02/16/25 16:50 History of Present Illness HPI Narrative: Patient is a 70-year-old female baseline wheelchair-bound. Attempted to ambulate to the bathroom on her own. Fell accidentally. Patient denies any chest pain any nausea vomiting. Her tetanus status is up-to-date she is on Eliquis for atrial fibrillation she landed on her right face landed on the right elbow right forearm right knee area. Suffered a laceration to the right forearm. Patient from home. No systemic complaints. No nausea no vomiting. No focal weakness. Patient baseline does not ambulate well. There was no chest pain there is no dizziness prior there is no loss of consciousness. She has a long history of diabetes. Patient claims her tetanus is up-to-date Related Data Previous Rx's ?Medication ?Instructions ?Recorded amoxicillin 875 mg-potassium 1 tab PO BID 4 days #8 ta bs 11/25/22 clavulanate 125 mg tablet vancomycin 125 mg capsule 125 mg PO QID 7 days #28 cap s 11/25/22 Allergies Allergy/AdvReac Type Severity Reaction Status Date / Time azathioprine (From Imuran) Allergy Hives Verified 02/16/25 16:46 Review of Systems 2 Review of Systems: Positive skin tear on the right side. positive head injury PMFSH Past Medical History Attestation statement: The following information was validated with the patient. Medical History Spinal cord stimulator status Lumbar post-laminectomy syndrome Central nervous system lupus Tachycardia Hypercholesteremia Surgical History S/P left rotator cuff repair History of right hip replacement Social History Social History Alcohol intake: never Smoked in Last 30 Days: No Use of substances other than those prescribed or required for medical reasons: No Advance Directives: No Advance Directives Information Provided: Yes Do you have a plan to hurt others: No Plan Physical Exam 2 Vital Signs: Vital Signs: Last Vital Signs Temp 98.0 F 02/16/25 19:47 Pulse 62 02/16/25 19:47 Resp 18 02/16/25 19:47 BP 166/78 H 02/16/25 19:47 Pulse Ox 100 02/16/25 19:47 O2 Del Method Nasal Cannula 02/16/25 19:47 O2 Flow Rate 4 02/16/25 19:47 Oxygen Flow Rate 4 02/16/25 16:43 BMI result Body Mass Index 39.3 Appearance: Alert. Oriented X3. No acute distress. Eyes: Pupils equal, round and reactive to light. ENT: Pharynx normal. Neck: Normal inspection. C-spine immobilized CVS: Normal heart rate and rhythm. Pulses normal. Normal S1 and S2 Respiratory: No respiratory distress. Breath sounds normal. No Wheezing. No rales. There is no chest wall tenderness elicited on palpation no crepitus Abdomen: Soft and nontender. No rigidity. No distention. good BS x4 Skin: Again skin tear noted to the right forearm area positive contusion to the right knee Extremities: No lower extremity edema. Neurovascular intact to all extremities. Gross motor intact distal pulses intact large skin tear/laceration to the right forearm small bleeding area just distal to the knee on the right range of motion of the right knee is intact Neuro: Oriented X 3. No motor deficit. No sensory deficit. Moving all extermities. No slurred speech Medications Administered Discontinued Medications Generic Name Dose Route Start Last Admin Trade Name Freq PRN Reason Stop Dose Admin Lidocaine HCl 10 ml 02/16/25 21:18 02/16/25 21:37 Lidocaine Hcl 1 % Mpf 5 Ml Vial SUBCUT 02/16/25 21:19 10 ml ONCE ONE Administration Procedures Laceration Laceration 1: Site: other (Right forearm) Side (If applicable): right Size (cm): 10 Description: flap, irregular, clean and other Depth: simple, single layer Local Anesthetic: lidocaine 1% Amount of anesthesia used (mL): 5 Pre-repair: wound explored Skin layer closed with: other (Prolene) Size (cm): other (10) Number of sutures: 12 Technique: simple, interrupted Right forearm: Site: other (Forearm) Side (If applicable): right Size (cm): 4 Description: linear Depth: simple, single layer Local Anesthetic: lidocaine 1% Amount of anesthesia used (mL): 3 Pre-repair: wound explored, irrigated extensively and deep structures intact Skin layer closed with: other (Prolene) Size (cm): 5-0 Number of sutures: 4 Medical Decision Making Medical Decision Making [facility] Narrative: Patient had a mechanical fall. CT scan of the head by my interpretation is grossly negative no acute evidence of bleeding. I reviewed radiology's reading of the CT scan head CT scan face CT scan C-spine there were all grossly negative. X-ray of the knee, forearm, elbow was reviewed. My interpretation is grossly negative for fracture. I reviewed radiology's reading. Differential Diagnosis Differential Diagnoses: The differential diagnosis associated with the presentation includes Head injury, fracture, dislocation, laceration Admission/Observation Consideration of admission/observation: Escalation of care including admission/observation considered No need to admit as patient's CT scan was all negative Lab Data [facility] Lab Attestation statement: I reviewed the patient's lab results. 02/16/25 18:04 02/16/25 18:04 Labs: Lab Results 02/16/25 Range/Units 18:04 WBC 5.3 (4.8-10.8) X10*3/uL RBC 3.41 L (4.20-5.50) X10*6/uL Hgb 9.8 L (12.0-16.0) g/dl Hct 30.7 L (37.0-47.0) % MCV 90.0 (80.0-98.0) fL MCH 28.7 (27.0-33.0) pg MCHC 31.9 (31.0-35.0) g/dl RDW 16.4 H (11.0-16.0) % Plt Count 160 (160-400) X10*3/uL MPV 11.1 (9.4-12.3) fL Immature Gran % (Auto) 1.7 H (0.0-0.4) % Neut % (Auto) 78.3 H (45-73) % Lymph % (Auto) 13.0 L (20-40) % Henry % (Auto) 6.8 (2-11) % Eos % (Auto) 0.0 (0-4) % Baso % (Auto) 0.2 (0-2) % Lymph # (Auto) 0.7 L (1.2-4.9) X10*3/uL Henry # (Auto) 0.4 (0.1-1.2) X10*3/uL Eos # (Auto) 0.0 (0.0-0.4) X10*3/uL Baso # (Auto) 0.0 (0.0-0.2) X10*3/uL Abs Immat Gran (auto) 0.09 H (0.00-0.03) X10*3/uL Absolute Neuts (auto) 4.2 (2.0-8.3) x10*3/uL Absolute Nucleated RBC 0.000 (0.0-0.012) X10*3/uL Nucleated RBC % (auto) 0.0 (0.0-0.2) /100WBC PT 13.0 H (10.9-12.4) SEC INR 1.1 (0.9-1.1) Sodium 144 (135-145) mmol/L Potassium 4.6 (3.3-5.1) mmol/L Chloride 109 H (96-108) mmol/L Carbon Dioxide 29 (22-29) mmol/L Anion Gap 11 L (12-20) BUN 27 H (9-16) mg/dL Creatinine 1.26 (0.5-1.4) mg/dL Estim Creat Clear Calc 42.4 Estimated GFR 42 Random Glucose 340 H (60-115) mg/dL Calcium 8.5 (8.4-10.2) mg/dL Magnesium 1.6 (1.6-2.6) mg/dL Total Bilirubin 0.3 (0.0-1.0) mg/dL AST 25 (5-31) U/L ALT 18 (0-31) U/L Alkaline Phosphatase 39 (39-117) U/L Total Protein 4.9 L (6.5-8.0) g/dL Albumin 3.0 L (3.5-5.0) g/dL Independent Interpretation I performed an independent interpretation of an: CT Scan (CT head negative for bleed) Radiology Impression Discussion of test interpretation with radiology: I have reviewed the radiologist's reading. External Record Review External record reviewed: Inpatient record Social Determinants Patient?s care significantly limited by Social Determinants of Health including: Problems related to primary support group Discharge Plan Discharge Clinical Impression: Head injury, Laceration of forearm Patient Disposition: Home, Self-Care Instructions: Laceration (DC), Head Injury (DC) Additional Instructions: Suture removal in approximately 9 days Prescriptions: No Action amoxicillin-pot clavulanate 875-125 mg tablet 1 tab PO BID 4 Days Qty: 8 0RF vancomycin 125 mg capsule 125 mg PO QID 7 Days Qty: 28 0RF Referrals: Rajesh Luu MD [Primary Care Provider, Internal Medicine] - 02/19/25 Referral Note: Suture removal in 9 days Print Language: [place]
[2025-02-16 19:47] VITALS: BP 166/78; PULSE 62; RESP 18; TEMP 36.7; O2SAT 100
--- NOTE | 2025-02-16 21:27 | PC.NURSE ---
late entry- assumed care of pt. Advised of pending scans. Pt has no questions at this time. Respiration even and unlabored.
[2025-02-16] MEDS: Lidocaine HCl 1 % MPF 5 ML VIAL 10 ML SUBCUT (21:37)
--- NOTE | 2025-02-16 22:17 | PC.NURSE ---
pt voided in bedpan, le cleaned with saline and wrapped with non stick dressing.
[2025-02-16 22:31] VITALS: BP 133/45; PULSE 63; RESP 18; TEMP 36.6; O2SAT 98
--- NOTE | 2025-02-16 22:36 | PC.NURSE ---
pt wound on Right elbw and forearm cleaned with saline, and dressed with bacitracin per MAR and non stick dressing. EMS called for transport home. at bedside.
[2025-02-16 23:19] VITALS: BP 133/45; PULSE 63; RESP 18; TEMP 36.6; O2SAT 98
== END 2025-02-17 00:56 | disposition home or self-care (01) ==
PROVIDERS: Emergency Provider Emergency Medicine Emergency Medical Services; PCP Family Medicine
DX: S51.811A Laceration without foreign body of right forearm, initial encounter (principal); S09.8XXA Other specified injuries of head, initial encounter; W18.11XA Fall from or off toilet without subsequent striking against object, initial encounter; E11.9 Type 2 diabetes mellitus without complications; E78.00 Pure hypercholesterolemia, unspecified; I48.91 Unspecified atrial fibrillation; Y93.89 Activity, other specified; Y92.012 Bathroom of single-family (private) house as the place of occurrence of the external cause; Y99.9 Unspecified external cause status; Z79.899 Other long term (current) drug therapy
CPT/HCPCS: 12035; 36415; 70450; 70486; 72125; 73080; 73090; 73560; 80053; 83735; 85025; 85610; 99284; J2003

== ENCOUNTER → 2025-02-16 18:12 | Outpatient (BNV) | payer MEDICARE, SELFPAY | PROVIDERS: Emergency Provider Emergency Medicine Emergency Medical Services; PCP Family Medicine; Visit Provider Radiology Neuroradiology | DX: M48.02 Spinal stenosis, cervical region (principal); M26.649 Arthritis of unspecified temporomandibular joint; G31.9 Degenerative disease of nervous system, unspecified; M19.021 Primary osteoarthritis, right elbow; M25.461 Effusion, right knee; M79.631 Pain in right forearm | CPT/HCPCS: 70450; 70486; 72125; 73080; 73090; 73560 ==